=== PATIENT | female | born 1945 | race Caucasian/White ===

== ENCOUNTER 2016-12-06 19:09 | Emergency (ER) | payer OTHER, MEDICARE ==
--- NOTE | 2016-12-06 19:46 | ED CLINICAL REPORT ---
Clinical Report - Physicians/Mid Levels [facility] [address] [place] [address] 12/06/2016 19:12 Patient: JITENDRA HARKINS Time Seen: 1999Dec 06 2016. Arrived- By private vehicle. Historian- patient. HISTORY OF PRESENT ILLNESS Chief Complaint: SKIN RASH. Is still present. It is described as itchy. Not painful. (Patient reports neck and back rash over the last 2 weeks, pruritic in nature. No fevers or chills. At times takes Benadryl, which alleviates her symptoms. Denies any trauma or injury. Recently did sleep on a different mattress, which coincides with onset of rash.). REVIEW OF SYSTEMS No difficulty breathing, lump in throat, diarrhea or genital lesions. All systems otherwise negative, except as recorded above. PAST HISTORY Problems: Immunizations. Additional Surgeries: Hysterectomy. Medications: Venlafaxine HCl Oral. Nystatin Mouth/Throat. BusPIRone HCl Oral. Oxybutynin Chloride Oral. Klor-Con M20 Oral. Hydrochlorothiazide Oral. Zolpidem Tartrate Oral 10 mg, at bedtime as needed. Allergies: Codeine. PredniSONE. SOCIAL HISTORY No drug use. ADDITIONAL NOTES The nursing notes have been reviewed. PHYSICAL EXAM Vital Signs: 12/06/2016 19:25 BP: 112/78. HR: 65. RR: 18. O2 saturation: 98%. Temp: 97.7 F. Pain level now: 0/10. Appearance: Alert. CVS: Normal heart rate and rhythm. Heart sounds normal. Respiratory: No respiratory distress. Breath sounds normal. Skin: Skin rash present- the thoracic region of the upper back small fine erythematous lesions, with dark pigmentation, with dried blood. PROGRESS AND PROCEDURES Course of Care: Patient may have had contact dermatitis, at this time she is picking at the area, with dried blood, no obvious signs of scabies. No signs of hives, no signs of secondary infectious process. Patient stable. Follow-up palpation. Patient is stable. Physical exam findings are improved. Symptoms better. Patient/family counseled. Disposition: Discharged. CLINICAL IMPRESSION Allergic reaction. INSTRUCTIONS Prescription Medications: Hydrocortisone 1% cream: apply to affected areas three times daily for 1 week, as needed for itching, until symptoms improve. Dispense sixty (60) grams. No refills. Substitution is permissible. OTC Medications: Take Benadryl according to label instructions. Available over the counter. (every 6 hours) Follow-up: Follow up with your doctor in five days if not well. (Electronically signed by Mari Cardenas P.A.-C 12/06/2016 20:30)
--- NOTE | 2016-12-06 19:46 | ED CLINICAL REPORT ---
Clinical Report - Physicians/Mid Levels [facility] [address] [place] [address] 12/06/2016 19:12 Patient: JITENDRA HARKINS Time Seen: 1999Dec 06 2016. Arrived- By private vehicle. Historian- patient. HISTORY OF PRESENT ILLNESS Chief Complaint: SKIN RASH. Is still present. It is described as itchy. Not painful. (Patient reports neck and back rash over the last 2 weeks, pruritic in nature. No fevers or chills. At times takes Benadryl, which alleviates her symptoms. Denies any trauma or injury. Recently did sleep on a different mattress, which coincides with onset of rash.). REVIEW OF SYSTEMS No difficulty breathing, lump in throat, diarrhea or genital lesions. All systems otherwise negative, except as recorded above. PAST HISTORY Problems: Immunizations. Additional Surgeries: Hysterectomy. Medications: Venlafaxine HCl Oral. Nystatin Mouth/Throat. BusPIRone HCl Oral. Oxybutynin Chloride Oral. Klor-Con M20 Oral. Hydrochlorothiazide Oral. Zolpidem Tartrate Oral 10 mg, at bedtime as needed. Allergies: Codeine. PredniSONE. SOCIAL HISTORY No drug use. ADDITIONAL NOTES The nursing notes have been reviewed. PHYSICAL EXAM Vital Signs: 12/06/2016 19:25 BP: 112/78. HR: 65. RR: 18. O2 saturation: 98%. Temp: 97.7 F. Pain level now: 0/10. Appearance: Alert. CVS: Normal heart rate and rhythm. Heart sounds normal. Respiratory: No respiratory distress. Breath sounds normal. Skin: Skin rash present- the thoracic region of the upper back small fine erythematous lesions, with dark pigmentation, with dried blood. PROGRESS AND PROCEDURES Course of Care: Patient may have had contact dermatitis, at this time she is picking at the area, with dried blood, no obvious signs of scabies. No signs of hives, no signs of secondary infectious process. Patient stable. Follow-up palpation. Patient is stable. Physical exam findings are improved. Symptoms better. Patient/family counseled. Disposition: Discharged. CLINICAL IMPRESSION Allergic reaction. INSTRUCTIONS Prescription Medications: Hydrocortisone 1% cream: apply to affected areas three times daily for 1 week, as needed for itching, until symptoms improve. Dispense sixty (60) grams. No refills. Substitution is permissible. OTC Medications: Take Benadryl according to label instructions. Available over the counter. (every 6 hours) Follow-up: Follow up with your doctor in five days if not well. (Electronically signed by Mari Cardenas P.A.-C 12/06/2016 20:30)
--- NOTE | 2016-12-06 19:46 | ED NURSING NOTES ---
Clinical Report - Nurses [facility] [address] [place] [address] 12/06/2016 19:12 Patient: JITENDRA HARKINS TRIAGE Triage time 19:25 Dec 06 2016. Acuity: LEVEL 4. Chief Complaint: SKIN RASH. SEPSIS SCREEN: Sepsis Screen: negative. Negative (no infection suspected/documented). SLADE COMA SCORE: [place] Coma Scale: 15- eyes open spontaneously (4); best verbal response- oriented x 4 (5); best motor response- obeys commands (6). --19:35 Lizzie Ncie 19:25 12/06/16. BP: 112/78. HR: 65. RR: 18. O2 saturation: 98% on room air. Temp: 97.7 F (oral). Pain level now: 0/10. --19:35 Lizzie Nice. Weight: 50.8 kg stated. Height/Length: 61 inches Per Patient. BMI: 21.2. --19:32 Lizzie Nice. Medications Zolpidem Tartrate Oral 10 mg, at bedtime as needed. --19:28 Lizzie Nice Hydrochlorothiazide Oral. --19:29 Lizzie Nice Klor-Con M20 Oral. --19:29 Lizzie Nice Oxybutynin Chloride Oral. --19:29 Lizzie Nice BusPIRone HCl Oral. --19:30 Lizzie Nice Nystatin Mouth/Throat. --19:31 Lizzie Nice Venlafaxine HCl Oral. --19:31 Lizzie Nice. Medication/allergy information source: the patient. --19:35 Lizzie Nice. Allergies Codeine. --19:29 Lizzie Nice PredniSONE. --19:29 Lizzie Nice. History Arrived by private vehicle. Historian: patient. Accompanied by family. Reported as located on the neck and located on the back. Onset. (2 weeks). It is described as itchy. ( Patient reports a rash on her back that is now starting on her neck. She states this started about two weeks ago. She called her doctors office and they referred her to urgent care. She states she has tried benadryl. She states she cannot think of any new substance she has come in contact with.). PAST MEDICAL HX: Immunizations: up-to-date. The patient is post-menopausal. SOCIAL HX: No infectious disease exposure. FALL RISK ASSESSMENT: Fall risk assessment completed. No fall risk identified. NUTRITIONAL RISK ASSESSMENT: The nutritional risk assessment revealed no deficiencies. FUNCTIONAL ASSESSMENT: Functional assessment: no impairments noted. LEARNING NEEDS ASSESSMENT: The learning needs assessment revealed no barriers. SKIN INTEGRITY ASSESSMENT: Skin integrity risk assessment completed. No skin integrity risk identified. --19:35 Lizzie Nice SOCIAL HX: Never smoker. Occasional alcohol use. No drug use. No infectious disease exposure. ABUSE ASSESSMENT: No report of abuse. --19:35 Lizzie Nice. ADDITIONAL SURGERIES: Hysterectomy. --19:33 Lizzie Nice. Interventions ID band on patient. To treatment room. --19:35 Lizzie Nice. PHYSICAL ASSESSMENT GENERAL / NEURO / PSYCH: Alert. The patient does not appear to be in acute distress. Oriented X 4. HEENT: Mucous membranes are pink. RESPIRATORY: Respirations not labored. CVS: Pulses within normal limits. SKIN: Skin is warm and dry. Skin rash on the back- no notable rash, but patient has some scabbing and broken areas of skin from itching. --19:36 Lizzie Nice. NURSING PROGRESS NOTES 19:36 12/06/16. Pulse oximeter and NIBP monitor placed on patient; monitor alarms on. Patient gowned. Reassurance given to the patient. Two patient identifiers checked. Call light placed in reach. Side rails up x 1. Bed placed in lowest position. Brakes of bed on. Patient ready for evaluation- chart flagged. --19:36 Lizzie Nice. DISPOSITION / DISCHARGE 19:55 12/06/16. Condition at departure: stable. No learning barriers present. Discharge instructions provided and reviewed with the patient and spouse. Reviewed medication(s) side effects, precautions, dosing and course information. Prescription(s) given to the patient. Reviewed skin care instructions. Patient and spouse verbalized understanding. Written instructions provided in Swedish. ( Discussed follow up with PCP or dermatology if symptoms persist.). The patient was discharged by the physician facilities maintenance assistant. She was discharged home and accompanied by spouse. She left the Emergency Department ambulatory and via private vehicle. Spouse driving. --23:38 Lizzie Nice 19:55 12/06/16. BP: 123/68. HR: 68. RR: 20. O2 saturation: 96% on room air. Temp: deferred. Pain level now: 0/10. --23:38 Lizzie Nice. Locked/Released at 12/06/2016 23:38 by Lizzie Nice,
--- NOTE | 2016-12-06 19:46 | ED NURSING NOTES ---
Clinical Report - Nurses [facility] [address] [place] [address] 12/06/2016 19:12 Patient: JITENDRA HARKINS TRIAGE Triage time 19:25 Dec 06 2016. Acuity: LEVEL 4. Chief Complaint: SKIN RASH. SEPSIS SCREEN: Sepsis Screen: negative. Negative (no infection suspected/documented). SLADE COMA SCORE: [place] Coma Scale: 15- eyes open spontaneously (4); best verbal response- oriented x 4 (5); best motor response- obeys commands (6). --19:35 Lizzie Nice 19:25 12/06/16. BP: 112/78. HR: 65. RR: 18. O2 saturation: 98% on room air. Temp: 97.7 F (oral). Pain level now: 0/10. --19:35 Lizzie Nice. Weight: 50.8 kg stated. Height/Length: 61 inches Per Patient. BMI: 21.2. --19:32 Lizzie Nice. Medications Zolpidem Tartrate Oral 10 mg, at bedtime as needed. --19:28 Lizzie Nice Hydrochlorothiazide Oral. --19:29 Lizzie Nice Klor-Con M20 Oral. --19:29 Lizzie Nice Oxybutynin Chloride Oral. --19:29 Lizzie Nice BusPIRone HCl Oral. --19:30 Lizzie Nice Nystatin Mouth/Throat. --19:31 Lizzie Nice Venlafaxine HCl Oral. --19:31 Lizzie Nice. Medication/allergy information source: the patient. --19:35 Lizzie Nice. Allergies Codeine. --19:29 Lizzie Nice PredniSONE. --19:29 Lizzie Nice. History Arrived by private vehicle. Historian: patient. Accompanied by family. Reported as located on the neck and located on the back. Onset. (2 weeks). It is described as itchy. ( Patient reports a rash on her back that is now starting on her neck. She states this started about two weeks ago. She called her doctors office and they referred her to urgent care. She states she has tried benadryl. She states she cannot think of any new substance she has come in contact with.). PAST MEDICAL HX: Immunizations: up-to-date. The patient is post-menopausal. SOCIAL HX: No infectious disease exposure. FALL RISK ASSESSMENT: Fall risk assessment completed. No fall risk identified. NUTRITIONAL RISK ASSESSMENT: The nutritional risk assessment revealed no deficiencies. FUNCTIONAL ASSESSMENT: Functional assessment: no impairments noted. LEARNING NEEDS ASSESSMENT: The learning needs assessment revealed no barriers. SKIN INTEGRITY ASSESSMENT: Skin integrity risk assessment completed. No skin integrity risk identified. --19:35 Lizzie Nice SOCIAL HX: Never smoker. Occasional alcohol use. No drug use. No infectious disease exposure. ABUSE ASSESSMENT: No report of abuse. --19:35 Lizzie Nice. ADDITIONAL SURGERIES: Hysterectomy. --19:33 Lizzie Nice. Interventions ID band on patient. To treatment room. --19:35 Lizzie Nice. PHYSICAL ASSESSMENT GENERAL / NEURO / PSYCH: Alert. The patient does not appear to be in acute distress. Oriented X 4. HEENT: Mucous membranes are pink. RESPIRATORY: Respirations not labored. CVS: Pulses within normal limits. SKIN: Skin is warm and dry. Skin rash on the back- no notable rash, but patient has some scabbing and broken areas of skin from itching. --19:36 Lizzie Nice. NURSING PROGRESS NOTES 19:36 12/06/16. Pulse oximeter and NIBP monitor placed on patient; monitor alarms on. Patient gowned. Reassurance given to the patient. Two patient identifiers checked. Call light placed in reach. Side rails up x 1. Bed placed in lowest position. Brakes of bed on. Patient ready for evaluation- chart flagged. --19:36 Lizzie Nice. DISPOSITION / DISCHARGE 19:55 12/06/16. Condition at departure: stable. No learning barriers present. Discharge instructions provided and reviewed with the patient and spouse. Reviewed medication(s) side effects, precautions, dosing and course information. Prescription(s) given to the patient. Reviewed skin care instructions. Patient and spouse verbalized understanding. Written instructions provided in Slovak. ( Discussed follow up with PCP or dermatology if symptoms persist.). The patient was discharged by the physician assistant boys track coach. She was discharged home and accompanied by spouse. She left the Emergency Department ambulatory and via private vehicle. Spouse driving. --23:38 Lizzie Nice 19:55 12/06/16. BP: 123/68. HR: 68. RR: 20. O2 saturation: 96% on room air. Temp: deferred. Pain level now: 0/10. --23:38 Lizzie Nice. Locked/Released at 12/06/2016 23:38 by Lizzie Nice,
--- NOTE | 2016-12-06 23:38 | ED MED RECONCILIATION SUMMARY ---
Patient: JITENDRA HARKINS Medication Reconciliation Report [facility] VisitID: [id number] [address] [place] [address] 70y, F Registration Date/Time: 12/06/2016 Weight: 50.8 kg Height/Length: 61 in. BMI: 21.2 ALLERGIES: Codeine, PredniSONE The patient's Home Medications are listed below: THE FOLLOWING MEDICATIONS NEED TO BE RECONCILED: BusPIRone HCl Oral Hydrochlorothiazide Oral Klor-Con M20 Oral Nystatin Mouth/Throat Oxybutynin Chloride Oral Venlafaxine HCl Oral Zolpidem Tartrate Oral 10 mg, at bedtime The source(s) of the original Home Medication information: patient The following Medications were given to the patient in the Emergency Department: None. The following Medications were prescribed to the patient: Take Benadryl according to label instructions. Available over the counter.(every 6 hours) -- Mari Cardenas PChicoAJohn Hydrocortisone 1% cream: apply to affected areas three times daily for 1 week, as needed for itching, until symptoms improve. Dispense sixty (60) grams. No refills. Substitution is permissible. -- Mari Cardenas PChicoAJohn
--- NOTE | 2016-12-06 23:38 | ED MAR SUMMARY ---
..... Medication Administration Record [facility] [address] [place], [place] [id number] Patient: JITENDRA HARKINS Visit ID: [id number] 70y, F Weight: 50.8 kg Height/Length: 61 in BMI: 21.2 ALLERGIES: PredniSONE, Codeine
--- NOTE | 2016-12-06 23:38 | ED DISCHARGE INSTRUCTIONS ---
Patient: JITENDRA HARKINS General Instructions [facility] VisitID: [id number] [place] [address] 70y, F Registration Date/Time: 12/06/2016 Allergic reaction. INSTRUCTIONS Prescription Medications: Hydrocortisone 1% cream: apply to affected areas three times daily for 1 week, as needed for itching, until symptoms improve. Dispense sixty (60) grams. No refills. Substitution is permissible. OTC Medications: Take Benadryl according to label instructions. Available over the counter. (every 6 hours) Follow-up: Follow up with your doctor in five days if not well. ADDITIONAL INFORMATION Allergic Reaction, Other [Local] You are having an allergic reaction. This is due to exposure to something you have become sensitive to. This may be a household product, medicine, chemical, soap, cream, cosmetics or jewelry. A sting from an insect (that you were not aware of) can also cause this reaction. Sometimes it is difficult to know exactly what caused this reaction. There may be redness, itching, and swelling. The rash will fade over the next few days. Home Care: If itching is a problem, avoid anything that heats up your skin (hot showers/baths, direct sunlight) since heat will make itching worse. An ice pack (ice cubes in a plastic bag, wrapped in a towel) will reduce local areas of redness and itching. Lanacaine cream or Solarcaine spray (or other product containing "benzocaine") will reduce the itching. Oral Benadryl (diphenhydramine) is an antihistamine available at drug and grocery stores. Unless a prescription antihistamine was given, Benadryl may be used to reduce itching if large areas of the skin are involved. Use lower doses during the daytime and higher doses at bedtime since the drug may make you sleepy. [NOTE: Do not use Benadryl if you have glaucoma or if you are a man with trouble urinating due to an enlarged prostate.] Claritin (loratadine) is an antihistamine that causes less drowsiness and is a good alternative for daytime use. Follow Up with your doctor or this facility in the next two days if your symptoms do not continue to improve. Get Prompt Medical Attention if any of the following occur: Spreading areas of itching, redness or swelling New or worse swelling in the face, eyelids, lips, mouth, throat or tongue Trouble swallowing or breathing Dizziness, weakness or fainting Signs of infection: Spreading redness Increased pain or swelling Fever of 100.4F (38C) or higher, or as directed by your healthcare provider Colored fluid draining from the wound You have been given the following additional information: Allergic Reaction, Other (Local) (Electronically signed by Mari Cardenas P.A.-C 12/06/2016 20:30)
--- NOTE | 2016-12-06 23:38 | ED MAR SUMMARY ---
..... Medication Administration Record [facility] [address] [place], [place] [id number] Patient: JITENDRA HARKINS Visit ID: [id number] 70y, F Weight: 50.8 kg Height/Length: 61 in BMI: 21.2 ALLERGIES: PredniSONE, Codeine
--- NOTE | 2016-12-06 23:38 | ED MED RECONCILIATION SUMMARY ---
Patient: JITENDRA HARKINS Medication Reconciliation Report [facility] VisitID: [id number] [address] [place] [address] 70y, F Registration Date/Time: 12/06/2016 Weight: 50.8 kg Height/Length: 61 in. BMI: 21.2 ALLERGIES: Codeine, PredniSONE The patient's Home Medications are listed below: THE FOLLOWING MEDICATIONS NEED TO BE RECONCILED: BusPIRone HCl Oral Hydrochlorothiazide Oral Klor-Con M20 Oral Nystatin Mouth/Throat Oxybutynin Chloride Oral Venlafaxine HCl Oral Zolpidem Tartrate Oral 10 mg, at bedtime The source(s) of the original Home Medication information: patient The following Medications were given to the patient in the Emergency Department: None. The following Medications were prescribed to the patient: Take Benadryl according to label instructions. Available over the counter.(every 6 hours) -- Mari Cardenas PChicoAJohn Hydrocortisone 1% cream: apply to affected areas three times daily for 1 week, as needed for itching, until symptoms improve. Dispense sixty (60) grams. No refills. Substitution is permissible. -- Mari Cardenas PChicoAJohn
== END 2016-12-06 19:55 | disposition home or self-care (01) ==
LOC: ED SRH 19:09
DX: L23.9 Allergic contact dermatitis, unspecified cause (principal); Z88.5 Allergy status to narcotic agent; Z88.8 Allergy status to other drugs, medicaments and biological substances

== ENCOUNTER 2016-12-14 13:50 | Emergency (ER) | payer OTHER, MEDICARE ==
--- NOTE | 2016-12-14 17:34 | ED CLINICAL REPORT ---
Clinical Report - Physicians/Mid Levels [facility] [address] [place] [address] 12/14/2016 13:52 Patient: JITENDRA HARKINS Time Seen: 14:20. Arrived- By private vehicle. Historian- patient. HISTORY OF PRESENT ILLNESS Chief Complaint: DIZZINESS. ( Syncopal episode). Severity described as moderate at its maximum. When seen in the E.D., it was gone. Modifying factors- relieved by nothing. Not worsened by anything. Not described as a sense of rotation, movement, falling or confusion. Not described as feeling off balance or weak all over. Described as feeling light-headed. This started today and is now gone. No nausea, vomiting, hearing loss, tinnitus or ear pain. (Pt had a throbbing headache after eating a large meal, and then felt faint. Pt does note that she has not been drinking enough water.). Similar symptoms previously: Once. Recent medical care: Not recently seen/assessed. REVIEW OF SYSTEMS The patient has had a headache and experienced syncope. No double vision, weakness, head injury, chest pain or palpitations. No black stools, numbness, bloody stools, fever or sore throat. No cough, difficulty breathing, abdominal pain, diarrhea or difficulty with urination. No skin rash, enlarged lymph nodes, chills or joint pain. No difficulty walking. All systems otherwise negative, except as recorded above. PAST HISTORY Problems: Allergic Reaction. Immunizations. Additional Surgeries: Hysterectomy. Medications: Nystatin Mouth/Throat. Oxybutynin Chloride Oral. Venlafaxine HCl Oral. Zolpidem Tartrate Oral 10 mg, at bedtime as needed. BusPIRone HCl Oral. Hydrochlorothiazide Oral. Klor-Con M20 Oral. Allergies: Codeine. PredniSONE. SOCIAL HISTORY Never smoker. Occasional alcohol use. No drug use. ADDITIONAL NOTES The nursing notes have been reviewed. PHYSICAL EXAM Vital Signs: 12/14/2016 14:21 BP: 120/73. HR: 68. RR: 18. O2 saturation: 100%. Temp: 97.5 F. Pain level now: 12/05. Have been reviewed. Appearance: Alert. No acute distress. Eyes: Pupils equal, round and reactive to light. No nystagmus. Extraocular movements normal. ENT: Normal ENT inspection. Moist mucous membranes. Neck: Normal inspection. CVS: Normal heart rate and rhythm. Heart sounds normal. Pulses normal. Respiratory: No respiratory distress. Breath sounds normal. Abdomen: Soft and nontender. Back: Normal inspection. No CVA tenderness. Skin: Skin warm and dry. Normal skin color. No rash. Normal skin turgor. Extremities: Extremities exhibit normal ROM. No lower extremity edema. Neuro: Alert. Oriented X 3. Mood/affect normal. Speech normal. Cranial nerves normal (as tested). No cerebellar findings. No motor deficit. No sensory deficit. LABS, X-RAYS, AND EKG EKG: EKG time: (1513). No acute ischemia. Rate: 58. Bradycardia. Sinus bradycardia. Normal P waves. Normal IMELDA. Normal QRS complex. Normal axis. Normal ST and T waves, QT and QTc. Prior EKG unavailable. The study has been interpreted contemporaneously by me. The study has been independently viewed by me. The EKG appears to be a good tracing. I agree with and confirm the computer reading of the EKG. Rhythm Strip #1: Time: (1512). Rate= 57. Sinus bradycardia. Regular rhythm. Narrow QRS complexes. No ectopy. Conduction normal. Normal ST segments and T waves. The study was interpreted by me. Laboratory Tests: CBC w Diff: (YVETTE: 12/14/2016 16:15) ( MsgRcvd 12/14/2016 16:35) Final results Test Result Flag Units (Reference) WHITE BLOOD COUNT 7.4 K/uL (4.5-11.5) RED BLOOD COUNT 4.48 M/uL (4.00-5.20) HEMOGLOBIN 14.1 gm/dL (12.0-16.0) HEMATOCRIT 41.8 % (36.0-46.0) MEAN CELL VOLUME 93 fL (80-100) MEAN CORPUSCULAR HGB 31 pg (26-34) MEAN CORPUSCULAR HGB CONC 34 g/dL (31-37) RED CELL DISTRIBUTION WIDTH 12.6 % (11.6-14.8) PLATELET COUNT 192 K/uL (150-400) NEUTROPHIL % 77.8 H % (50-75) LYMPH % 13.9 L % (25-40) MONO % 7.7 % (3-14) EOSINOPHIL % 0.4 % (0-4) BASOPHIL % 0.2 % (0-2) BNP: (YVETTE: 12/14/2016 16:15) ( KygRcvd 12/14/2016 17:01) Final results Test Result Flag Units (Reference) B-TYPE NATRIURETIC PEPTIDE 51.6 pg/ml (5-100) CHEM 13 PANEL: (YVETTE: 12/14/2016 16:15) ( [facility] [place] 12/14/2016 17:24) Final results Test Result Flag Units (Reference) GLUCOSE 90 mg/dL (70-110) BUN 16 mg/dL (7-18) CREATININE 0.7 mg/dL (0.6-1.3) Estimated GFR >60 mL/min Estimated GFR- >60 mL/min Note: Persistent reduction over 3 months in eGFR<60 mL/min/1.73 m2 defines CKD. Patients with eGFR values>=60 mL/min/1.73 m2 may also have CKD if evidence ofpersistent proteinuria. Additional information may be foundat [email or web address].org. SODIUM 140 mmol/L (136-145) POTASSIUM 2.9 *L mmol/L (3.5-5.1) CRITICAL RESULTS CALLEDCalled to Beatriz VILLEDA 12/14/16 1723Were 2 patient identifiers used? YWas the result read back? Y CHLORIDE 102 mmol/L (98-107) CARBON DIOXIDE 31 mmol/L (21-32) CALCIUM 9.9 mg/dL (8.5-10.1) TOTAL PROTEIN 6.8 g/dL (6.4-8.2) ALBUMIN 3.7 g/dL (3.3-5.0) BILIRUBIN, TOTAL 0.4 mg/dL (0.0-1.0) ALKALINE PHOSPHATASE 91 U/L (46-116) AST (SGOT) 31 U/L (15-37) ALT (SGPT) 36 U/L (12-78) MAGNESIUM 1.7 L mg/dL (1.8-2.4) CPK 53 U/L (24-260) TROPONIN I <0.05 ng/mL (0.00-1.5) TROPONIN REFERENCE RANGE:<0.1 NEGATIVE0.1-1.5 INDETERMINANT>1.5 POSITIVE . Pulse Oximetry: 12/14/2016 14:21 O2 saturation: 100%. (FIO2 - room air). Interpretation: normal. PROGRESS AND PROCEDURES Course of Care: Pt was given a liter of NS and worked up for her syncopal episode. She was found to be hypokalemic, and was treated for this in the ED. No emergent condition was identified. Patient and spouse counseled in person regarding the patient's stable condition, test results, diagnosis and need for follow-up. Concerns were addressed. Old medical records reviewed. Disposition: Discharged. Condition: stable and improved. CLINICAL IMPRESSION Syncope of unknown cause .12 lead EKG performed. Hypokalemia INSTRUCTIONS Drink plenty of fluids. (Your labs looked good, other than your potassium being low. This can sometimes cause abnormal heart rhythms, and may have been the cause of your fainting episode today.). Warnings: GENERAL WARNINGS: Return or contact your physician immediately if your condition worsens or changes unexpectedly, if not improving as expected, or if other problems arise. Your Current Medications: CONTINUE TAKING THE FOLLOWING MEDICATIONS: BusPIRone HCl Oral. Hydrochlorothiazide Oral. Klor-Con M20 Oral. Nystatin Mouth/Throat. Oxybutynin Chloride Oral. Venlafaxine HCl Oral. Zolpidem Tartrate Oral : 10 mg at bedtime, prn. Prescription Medications: K-Dur 10 mEq: take 1 orally every 12 hours. Dispense twenty (20). No refills. Substitution is permissible. Follow-up: Follow up with your doctor. Call for the next available appointment. Reason for referral: Follow up ER visit; discuss Holter monitoring. Understanding of the discharge instructions verbalized by patient and family. (Electronically signed by Heaven Bonilla MD 12/22/2016 6:01)
--- NOTE | 2016-12-14 17:34 | ED NURSING NOTES ---
Clinical Report - Nurses [facility] [place] [address] [address] 12/14/2016 13:52 Patient: JITENDRA HARKINS TRIAGE Triage time 14:Dec 14 2016. Acuity: LEVEL 4. Chief Complaint: DIZZINESS and LIGHT HEADED and (Patient says her head felt like it was going to explod after eating a meal at restaurant). 14:26 12/14/16. SEPSIS SCREEN: Sepsis Screen. Negative (no infection suspected/documented). HENRRY COMA SCORE: Henrry Coma Scale: 15- eyes open spontaneously (4); best verbal response- oriented x 4 (5); best motor response- obeys commands (6). --14:26 Myranda Quinn R.N. 14:21 12/14/16. BP: 120/73 (regular adult cuff) taken on the left arm, while sitting. HR: 68 (regular). RR: 18. O2 saturation: 100% on room air. Temp: 97.5 F (oral). Pain level now: 2/10. Additional comments: DOOLEY. --14:26 Myranda Quinn R.N. Weight: 50.8 kg stated. Height/Length: 61 inches Per Patient. BMI: 21.2. --14:21 Myranda Quinn R.N. Medications BusPIRone HCl Oral. Hydrochlorothiazide Oral. Klor-Con M20 Oral. --14:23 Myranda Quinn R.N. Nystatin Mouth/Throat. Oxybutynin Chloride Oral. Venlafaxine HCl Oral. Zolpidem Tartrate Oral 10 mg, at bedtime as needed. --14:23 Myranda Quinn R.N. Allergies Codeine. PredniSONE. --14:23 Myranda Quinn R.N. History Arrived by private vehicle. Historian: patient. This started just prior to arrival. She has had a severe, throbbing headache. SOCIAL HX: Never smoker. Occasional alcohol use. No drug use. ABUSE ASSESSMENT: No report of abuse. FALL RISK ASSESSMENT: Fall risk assessment completed. No fall risk identified. NUTRITIONAL RISK ASSESSMENT: The nutritional risk assessment revealed no deficiencies. FUNCTIONAL ASSESSMENT: Functional assessment: no impairments noted. LEARNING NEEDS ASSESSMENT: The learning needs assessment revealed no barriers. SKIN INTEGRITY ASSESSMENT: Skin integrity risk assessment completed. No skin integrity risk identified. --14:26 Myranda Quinn R.N. PROBLEMS: Allergic Reaction. Immunizations. --14:23 Myranda Quinn R.N. ADDITIONAL SURGERIES: Hysterectomy. --14:23 Myranda Quinn R.N. Interventions ID band on patient. To treatment room. --14: Myranda Quinn R.N. PHYSICAL ASSESSMENT 14:12/14/16. To room via wheelchair. Patient gowned. GENERAL / NEURO / PSYCH: Alert. --14: Myranda Quinn R.N. NURSING PROGRESS NOTES 14:12/14/16. Patient gowned. Head of bed elevated. Reassurance given. Two patient identifiers checked. Call light placed in reach. Side rails up x 1. Bed placed in lowest position. Brakes of bed on. Brakes of chair on. Patient ready for evaluation- chart flagged and ED physician notified. --14:26 Myranda Quinn R.N. EKG time: (15:14). EKG was performed by a tech and shown to the ED physician. --15:31 Anabel Harris 16:15 12/14/2016 Site #1 started via IV in the left antecubital space with an 20g angiocath, with aseptic technique and good blood return; one attempt. Blood drawn: rainbow set. Saline lock flushed with 10 mL saline. --16:25 Myranda Quinn R.N. 16:25 12/14/2016 Started bag #1 1000 mL IV Fluids IV NS (Saline); at 1000 mL/hr over 1 hour(s) via site #1 via dial-a-flow. Allergies verified and confirmed 5 rights. IV patency established. IV site checked: no pain, redness, or swelling. IV flushed thoroughly pre- and post-medication administration. --16:25 Myranda Quinn R.N. 17:24 12/14/16. Critical value relayed to ED by 17:24 Dec 14 2016 Lebron Key. Critical value received by 17:24 Dec 14 2016 Myranda. K: 2.9. Critical value read back. Verified lab result. ED physician notifed of critical value. --17:25 Myranda Quinn R.N. 17:32 12/14/2016 KCL (Potassium Chloride ER) PO Tablets 40 meq given. Allergies verified and confirmed 5 rights. --17:32 Myranda Quinn R.N. 17:32 12/14/16. BP: 118/75 (regular adult cuff) taken on the right arm, while lying. HR: 66 (regular). RR: 16. O2 saturation: 99% on room air. Temp: 97.5 F (oral). Pain level now: 0/10. --17:34 Myranda Quinn R.N. 17:34 12/14/16. --17:34 Myranda Quinn R.N. 17:38 12/14/2016 IV Fluids IV NS Discontinued: bag #1 infused upon discharge. Total amount infused: 1000 mL. IV patency established. IV site checked: no pain, redness, or swelling. IV flushed thoroughly. --18:03 Myranda Quinn R.N. DISPOSITION / DISCHARGE 17:56 12/14/2016 Site #1 removed upon discharge. Bandaid applied. --17:56 Myranda Quinn R.N. 17:56 12/14/16. Condition at departure: improved. The goals identified in the patient's plan of care were met. No learning barriers present. Discharge instructions provided and reviewed with the patient and spouse. Reviewed medication(s) side effects and precautions information. Prescription(s) given to the patient. Patient and spouse verbalized understanding. Written instructions provided in Bengali. The patient was discharged home and accompanied by spouse. She left the Emergency Department ambulatory and via private vehicle. Spouse driving. FALL RISK ASSESSMENT: Fall risk assessment completed. No fall risk identified. --17:56 Myranda Quinn R.N. 17:55 12/14/16. BP: 146/80 (regular adult cuff) taken on the left arm, while lying. HR: 63 (regular). RR: 16. O2 saturation: 100% on room air. Temp: 97.3 F. Pain level now: 0/10. --17:56 Myranda Quinn R.N. Locked/Released at 12/23/2016 8:59 by Lourdes Greene R.N.
--- NOTE | 2016-12-14 17:34 | ED ORDER SUMMARY ---
..... Patient: JITENDRA HARKINS OrderSheet [facility] VisitID: [id number] [address] [place] [address] 70y, F Registration Date/Time: 12/14/2016 ORDER SHEET Weight: 50.8 kg (stated) Allergies: Codeine, PredniSONE GENERAL ORDERS: Tomato Paste Maker (Continuous) (14:12/14/2016 Precious JOHNSON) (Ack 14:58 LNations ER Tech1) (16:25 JSanders R.N.) Cardiac Panel Stat (14:56 12/14/2016 Precious JOHNSON) (Ack 14:59 LNations ER Tech1) (16:25 JSanders R.N.) BNP Urgent (14:12/14/2016 Precious JOHNSON) (Ack 14:59 LNations ER Tech1) (16:25 JSanders R.N.) Pulse oximeter (14:12/14/2016 Precious JOHNSON) (Ack 14:58 LNations ER Tech1) (16:25 JSanders R.N.) EKG - ER Stat (14:56 12/14/2016 Precious JOHNSON) (Ack 14:59 LNations ER Tech1) (15:29 LNations ER Tech1) MEDICATION ORDERS: KCl PO 40 meq (NOW) (17:25 12/14/2016 Precious JOHNSON) (17:32 JSanders R.N.) IV FLUIDS: IV NS : initial bolus 1000 mL (1000 mL/hr), then none - (NOW) (14:12/14/2016 Precious JOHNSON) (16:25 JSanders R.N.) ORDER SHEET NOTES: [Electronically signed by Heaven Bonilla MD (06:01 12/22/2016)] [Electronically signed by Lourdes Greene R.N. (08:59 12/23/2016)] [Electronically locked/signed by Lourdes Greene R.N. (08:59 12/23/2016)]
--- NOTE | 2016-12-14 17:34 | ED ORDER SUMMARY ---
..... Patient: JITENDRA HARKINS OrderSheet [facility] VisitID: [id number] [address] [place] [address] 70y, F Registration Date/Time: 12/14/2016 ORDER SHEET Weight: 50.8 kg (stated) Allergies: Codeine, PredniSONE GENERAL ORDERS: Grade And Center Marker (Continuous) (14:12/14/2016 Precious JOHNSON) (Ack 14:58 LNations ER Tech1) (16:25 JSanders R.N.) Cardiac Panel Stat (14:56 12/14/2016 Precious JOHNSON) (Ack 14:59 LNations ER Tech1) (16:25 JSanders R.N.) BNP Urgent (14:12/14/2016 Precious JOHNSON) (Ack 14:59 LNations ER Tech1) (16:25 JSanders R.N.) Pulse oximeter (14:12/14/2016 Precious JOHNSON) (Ack 14:58 LNations ER Tech1) (16:25 JSanders R.N.) EKG - ER Stat (14:56 12/14/2016 Precious JOHNSON) (Ack 14:59 LNations ER Tech1) (15:29 LNations ER Tech1) MEDICATION ORDERS: KCl PO 40 meq (NOW) (17:25 12/14/2016 Precious JOHNSON) (17:32 JSanders R.N.) IV FLUIDS: IV NS : initial bolus 1000 mL (1000 mL/hr), then none - (NOW) (14:12/14/2016 Precious JOHNSON) (16:25 JSanders R.N.) ORDER SHEET NOTES: [Electronically signed by Heaven Bonilla MD (06:01 12/22/2016)] [Electronically signed by Lourdes Greene R.N. (08:59 12/23/2016)] [Electronically locked/signed by Lourdes Greene R.N. (08:59 12/23/2016)]
--- NOTE | 2016-12-23 09:00 | ED DISCHARGE INSTRUCTIONS ---
Patient: JITENDRA HARKINS General Instructions [facility] VisitID: [id number] [address] [place] [address] 70y, F Registration Date/Time: 12/14/2016 Syncope of unknown cause .12 lead EKG performed. Hypokalemia INSTRUCTIONS Drink plenty of fluids. (Your labs looked good, other than your potassium being low. This can sometimes cause abnormal heart rhythms, and may have been the cause of your fainting episode today.). Warnings: GENERAL WARNINGS: Return or contact your physician immediately if your condition worsens or changes unexpectedly, if not improving as expected, or if other problems arise. Your Current Medications: CONTINUE TAKING THE FOLLOWING MEDICATIONS: BusPIRone HCl Oral. Hydrochlorothiazide Oral. Klor-Con M20 Oral. Nystatin Mouth/Throat. Oxybutynin Chloride Oral. Venlafaxine HCl Oral. Zolpidem Tartrate Oral : 10 mg at bedtime, prn. Prescription Medications: K-Dur 10 mEq: take 1 orally every 12 hours. Dispense twenty (20). No refills. Substitution is permissible. Follow-up: Follow up with your doctor. Call for the next available appointment. Reason for referral: Follow up ER visit; discuss Holter monitoring. Understanding of the discharge instructions verbalized by patient and family. ADDITIONAL INFORMATION Fainting:Uncertain Cause Fainting (syncope) is a temporary loss of consciousness ("passing out"). It occurs when blood flow to the brain is reduced. Near-fainting ("near-syncope") is very similar to fainting, but you do not fully "pass out". The common minor causes of fainting include: sudden fear, pain, nausea, emotional stress and overexertion. Suddenly standing up after sitting or lying for a long time can also cause fainting. The more serious causes for fainting are due to either a very slow or very fast or very slow heart beat ("arrhythmia"), other types of heart disease, dehydration, blood loss, seizure, stroke or ruptured blood vessel in the brain. Taking too much high blood pressure medicine can also cause low blood pressure and fainting. The exact cause of your episode is not certain. However, the tests today did not show any of the serious causes of fainting. Sometimes further testing is needed to find out if a serious problem exists. Therefore, it is important that you follow-up with your doctor as advised. Home Care: 1) Rest today. You may resume your normal activities when you are feeling back to normal. It is best to remain with someone who can check on you for the next 24 hours to watch for another episode of fainting. 2) If you become light-headed or dizzy, lie down immediately or sit with your head between your knees. 3) Because we do not know the exact cause of your near fainting spell, it is possible for another spell to occur without warning. Therefore, do not drive a car or operate dangerous equipment, do not take a bath alone (use a shower instead) and do not swim alone until your doctor says that you are no longer in danger of having another fainting spell. Follow Up with your doctor as advised. Get Prompt Medical Attention if any of the following occur: -- Another fainting spell occurs, which is not explained by the common causes listed above -- Chest, arm, neck, jaw, back or abdominal pain -- Shortness of breath -- Severe headache or seizure -- Blood in vomit, stools (black or red color) -- Unexpected vaginal bleeding -- Palpitations (very rapid or very slow or irregular heart beat) -- Signs of stroke: Weakness of an arm or leg or one side of the face Difficulty with speech or vision Extreme drowsiness, confusion, dizziness or fainting Hypokalemia Hypokalemia means a low level of potassium in the blood. This most often occurs in patients who take diuretics (water pills). It can also occur due to severe vomiting or diarrhea. A mild case usually causes no symptoms. It is only found with blood testing. More severe potassium loss causes generalized weakness, muscle or abdominal cramping, heart palpitations (rapid or irregular heartbeats) and low blood pressure. Home Care: 1) Take any potassium supplements prescribed. 2) Eat foods rich in potassium. The highest amount is found in artichoke, baked potatoes, spinach, cantaloupe, honeydew melon, cod, halibut, salmon, and scallops. White, red, or casey beans are also very good sources. A modest amount is found in orange juice, bananas, carrots, and tomato juice. 3) Certain types of diuretics (water pills), such as Lasix (furosemide), require that you take potassium supplements for as long as you take the diuretic pills. If you are taking a diuretic, discuss the need for potassium supplements with your doctor. Follow Up with your doctor for a repeat blood test within the next week or as advised by our staff. Get Prompt Medical Attention if any of the following occur: -- Increased weakness -- Feeling dizzy -- Irregular heartbeat, extra beats or very fast heart rate -- Fainting spell You have been given the following additional information: Syncope, Unk Cause Hypokalemia (Electronically signed by Heaven Bonilla MD 12/22/2016 6:01)
--- NOTE | 2016-12-23 09:00 | ED MAR SUMMARY ---
..... Medication Administration Record [facility] [address] [place] [address] Patient: JITENDRA HARKINS Visit ID: [id number] 70y, F Weight: 50.8 kg Height/Length: 61 in BMI: 21.2 ALLERGIES: Codeine, PredniSONE Start 16:25 12/14/2016 Myranda Quinn R.N., Stop 17:38 12/14/2016 Myranda Quinn R.N. Medication Administered: IV NS (SALINE), Dose: IV Fluids over 1 hour(s), Rate: 1000 mL/hr, Dispensed: 1000 mL bag, Site: #1 left AC. Medication Ordered: IV NS : initial bolus 1000 mL (1000 mL/hr), then none - (NOW). Given 17:32 12/14/2016 Myranda Quinn R.N. Medication Administered: KCL [PO] (POTASSIUM CHLORIDE ER), Dose: 40 meq Tablets PO. Medication Ordered: KCl PO 40 meq (NOW).
--- NOTE | 2016-12-23 09:00 | ED MED RECONCILIATION SUMMARY ---
Patient: JITENDRA HARKINS Medication Reconciliation Report [facility] VisitID: [id number] [address] [place] [address] 70y, F Registration Date/Time: 12/14/2016 Weight: 50.8 kg Height/Length: 61 in. BMI: 21.2 ALLERGIES: Codeine, PredniSONE The patient's Home Medications are listed below: CONTINUE TAKING THE FOLLOWING MEDICATIONS: BusPIRone HCl Oral Hydrochlorothiazide Oral Klor-Con M20 Oral Nystatin Mouth/Throat Oxybutynin Chloride Oral Venlafaxine HCl Oral Zolpidem Tartrate Oral 10 mg, at bedtime The source(s) of the original Home Medication information: Not obtained. The following Medications were given to the patient in the Emergency Department: IV NS IV Fluids bolus 0, then 1000 mL/hr, administered: 12/14/2016 4:25:00 PM KCL [PO] PO 40 meq, administered: 12/14/2016 5:32:00 PM The following Medications were prescribed to the patient: K-Dur 10 mEq: take 1 orally every 12 hours. Dispense twenty (20). No refills. Substitution is permissible. -- Heaven Bonilla MD
--- NOTE | 2016-12-23 09:00 | ED MAR SUMMARY ---
..... Medication Administration Record [facility] [address] [place] [address] Patient: JITENDRA HARKINS Visit ID: [id number] 70y, F Weight: 50.8 kg Height/Length: 61 in BMI: 21.2 ALLERGIES: Codeine, PredniSONE Start 16:25 12/14/2016 Myranda Quinn R.N., Stop 17:38 12/14/2016 Myranda Quinn R.N. Medication Administered: IV NS (SALINE), Dose: IV Fluids over 1 hour(s), Rate: 1000 mL/hr, Dispensed: 1000 mL bag, Site: #1 left AC. Medication Ordered: IV NS : initial bolus 1000 mL (1000 mL/hr), then none - (NOW). Given 17:32 12/14/2016 Myranda Quinn R.N. Medication Administered: KCL [PO] (POTASSIUM CHLORIDE ER), Dose: 40 meq Tablets PO. Medication Ordered: KCl PO 40 meq (NOW).
--- NOTE | 2016-12-23 09:00 | ED MED RECONCILIATION SUMMARY ---
Patient: JITENDRA HARKINS Medication Reconciliation Report [facility] VisitID: [id number] [address] [place] [address] 70y, F Registration Date/Time: 12/14/2016 Weight: 50.8 kg Height/Length: 61 in. BMI: 21.2 ALLERGIES: Codeine, PredniSONE The patient's Home Medications are listed below: CONTINUE TAKING THE FOLLOWING MEDICATIONS: BusPIRone HCl Oral Hydrochlorothiazide Oral Klor-Con M20 Oral Nystatin Mouth/Throat Oxybutynin Chloride Oral Venlafaxine HCl Oral Zolpidem Tartrate Oral 10 mg, at bedtime The source(s) of the original Home Medication information: Not obtained. The following Medications were given to the patient in the Emergency Department: IV NS IV Fluids bolus 0, then 1000 mL/hr, administered: 12/14/2016 4:25:00 PM KCL [PO] PO 40 meq, administered: 12/14/2016 5:32:00 PM The following Medications were prescribed to the patient: K-Dur 10 mEq: take 1 orally every 12 hours. Dispense twenty (20). No refills. Substitution is permissible. -- Heaven Bonilla MD
== END 2016-12-14 17:56 | disposition home or self-care (01) ==
LOC: ED SRH 13:50
DX: R55 Syncope and collapse (principal); E87.6 Hypokalemia; Z79.899 Other long term (current) drug therapy; Z88.5 Allergy status to narcotic agent; Z88.8 Allergy status to other drugs, medicaments and biological substances
CPT/HCPCS: 90100; 90616; 91320; 92610; 92720; 95059